=== PATIENT | male | born 1955 | race Caucasian/White ===

== ENCOUNTER 2016-11-16 20:03 | Emergency (ER) | payer MEDICAID, MEDICARE ==
[2016-11-16 20:08] VITALS: BP 126/88
--- NOTE | 2016-11-16 20:45 | ER Document Report ---
ED Medical Screen (RME) - General Stated Complaint: POSSIBLE INFECTION OF FOOT AFTER STEPPING ON NAIL Notes: Patient states he stepped on a alejandro nail about 2 weeks ago injuring right heel. Now has pain and swelling around the ankle. No drainage noted. Patient was wearing flip-flops at the time. Patient states he thinks he received a tetanus shot one month ago when he was injured and went to [facility]. I have greeted and performed a rapid initial assessment of this patient. A comprehensive ED assessment and evaluation of the patient, analysis of test results and completion of the medical decision making process will be conducted by additional ED providers. TRAVEL OUTSIDE OF THE [place] IN LAST 30 DAYS: No - Related Data Allergies/Adverse Reactions: Sulfa (Sulfonamide Antibiotics) Allergy (Intermediate, Verified 03/11/14 09:04) [place] Past Medical History Pulmonary Medical History: Reports: Hx COPD Renal/ Medical History: Reports: Hx Kidney Stones Psychiatric Medical History: Reports: Hx Anxiety, Hx Attention Deficit Hyperactivity Disorder, Hx Depression Past Surgical History: Reports: Hx Nose Surgery - rhinoplasty - Immunizations Immunizations up to date: Yes Hx Diphtheria, Pertussis, Tetanus Vaccination: No - unsure Physical Exam - Vital signs Vitals: Temp Pulse Resp BP Pulse Ox 98.0 F 106 H 16 126/88 H 93 11/16/16 20:07 11/16/16 20:07 11/16/16 20:07 11/16/16 20:07 11/16/16 20:07 - Skin Notes: Tenderness and swelling noted to her right heel and right ankle. No drainage noted. Mild erythema. Course - Vital Signs Vital signs: Temp Pulse Resp BP Pulse Ox 98.0 F 106 H 16 126/88 H 93 11/16/16 20:07 11/16/16 20:07 11/16/16 20:07 11/16/16 20:07 11/16/16 20:07
[2016-11-16] MEDS ORDERED: CLINDAMYCIN HCL 150 MG CAPSULE PO ONE (22:28)
--- NOTE | 2016-11-16 22:29 | ER Document Report ---
ED General - General Chief Complaint: Foot Injury Stated Complaint: POSSIBLE INFECTION OF FOOT AFTER STEPPING ON NAIL Notes: Patient is a 61-year-old male without past medical history who presents with 2 weeks of progressively worsening pain to his right foot as well as spreading erythema. States he stepped on a nail 2 weeks ago, pulled out the entirety the nail and did not have any pain for approximately 2-3 days. States he began to develop a dull, constant, throbbing pain to the foot that has gotten worse since that time. Nothing improves or worsens the pain. He went to urgent care [facility] and was referred to the emergency department. He has not had any constitutional symptoms or fever. States the redness is really not moved since it started. TRAVEL OUTSIDE OF THE [place] IN LAST 30 DAYS: No - Related Data Allergies/Adverse Reactions: Sulfa (Sulfonamide Antibiotics) Allergy (Intermediate, Verified 03/11/14 09:04) [place] Past Medical History - General Information source: Patient - Social History Smoking Status: Current Every Day Smoker Chew tobacco use (# tins/day): No Frequency of alcohol use: Occasional Drug Abuse: None Family History: Reviewed & Not Pertinent Patient has suicidal ideation: No Patient has homicidal ideation: No Pulmonary Medical History: Reports: Hx COPD Renal/ Medical History: Reports: Hx Kidney Stones. Denies: Hx Peritoneal Dialysis Psychiatric Medical History: Reports: Hx Anxiety, Hx Attention Deficit Hyperactivity Disorder, Hx Depression Past Surgical History: Reports: Hx Nose Surgery - rhinoplasty - Immunizations Immunizations up to date: Yes Hx Diphtheria, Pertussis, Tetanus Vaccination: No - unsure Review of Systems - Review of Systems Notes: Constitutional: Negative for fever. HENT: Negative for sore throat. Eyes: Negative for visual changes. Cardiovascular: Negative for chest pain. Respiratory: Negative for shortness of breath. Gastrointestinal: Negative for abdominal pain, vomiting or diarrhea. Genitourinary: Negative for dysuria. Musculoskeletal: Positive for right foot pain Skin: Positive for rash. Neurological: Negative for headaches, weakness or numbness. 10 point ROS negative except as marked above and in HPI. Physical Exam - Vital signs Vitals: Temp Pulse Resp BP Pulse Ox 98.0 F 106 H 16 126/88 H 93 11/16/16 20:07 11/16/16 20:07 11/16/16 20:07 11/16/16 20:07 11/16/16 20:07 Interpretation: Tachycardic Notes: PHYSICAL EXAMINATION: GENERAL: Well-appearing, well-nourished and in no acute distress. HEAD: Atraumatic, normocephalic. EYES: sclera anicteric, conjunctiva are normal. ENT: Moist mucous membranes. NECK: Normal range of motion LUNGS: Normal work of breathing HEART: 2+ radial pulses bilaterally EXTREMITIES: no pitting or edema. No cyanosis. NEUROLOGICAL: No focal neurological deficits. Moves all extremities spontaneously and on command. PSYCH: Normal mood, normal affect. SKIN: Warm, Dry, normal turgor, erythema to the dorsum of the foot extending to approximately 2 cm above the ankle. No crepitus. Course - Re-evaluation Re-evalutation: 11/16/16 22:29 Patient presents with symptoms most consistent with an acute cellulitis. Vitals within normal limits at time of my assessment (HR 82 at time of eval). Patient does not meet sepsis criteria is overall very well in appearance. Exam and history are not consistent with DVT. Patient will be started on coverage for both staph and strep. Xray without evidence of foreign body. I do not suspect a gas producing infection based on exam. At this time will discharge with return precautions and follow-up recommendations. Verbal discharge instructions given a the bedside and opportunity for questions given. Medication warnings reviewed. Patient is in agreement with this plan and has verbalized understanding of return precautions and the need for primary care follow-up in the next 24-72 hours. - Vital Signs Vital signs: Temp Pulse Resp BP Pulse Ox 98.0 F 106 H 16 126/88 H 93 11/16/16 20:07 11/16/16 20:07 11/16/16 20:07 11/16/16 20:07 11/16/16 20:07 - Diagnostic Test Radiology reviewed: Image reviewed, Reports reviewed Radiology results interpreted by me: 11/17/16 02:55 R foot xray: No foreign body. No gas. Discharge - Discharge Clinical Impression: Cellulitis of right foot Condition: Good Disposition: HOME, SELF-CARE Additional Instructions: The rash is likely due to infection of your skin. You need to take the antibiotics as prescribed. Do not stop even if the rash goes away until you have completed all the antibiotics. The area of redness was traced out here in the emergency department with a marking pen. You need to return to emergency department if the redness spreads outside of this area by more than 2 cm in any direction. You should also return if you develop fevers with temperature greater than 101, persistent vomiting, worsening pain, or have any other symptoms that are concerning to you. Prescriptions: Clindamycin HCl 300 mg PO TID #30 capsule
== END 2016-11-16 23:33 | disposition home or self-care (01) ==
LOC: ER 20:03
DX: L03.115 Cellulitis of right lower limb (principal); S99.921A Unspecified injury of right foot, initial encounter; W22.8XXA Striking against or struck by other objects, initial encounter; F17.200 Nicotine dependence, unspecified, uncomplicated
CPT/HCPCS: 99283

== ENCOUNTER 2017-07-25 17:08 | Emergency (ER) | payer MEDICARE, MEDICAID ==
[2017-07-25] MEDS ORDERED: NORMAL SALINE 1000 ML 1,000 ML IV ONE (17:47)
--- NOTE | 2017-07-25 17:48 | ER Document Report ---
ED Medical Screen (RME) - General Chief Complaint: Abdominal Pain Stated Complaint: ABDOMINAL PAIN Time Seen by Provider: 07/25/17 17:46 Notes: pt has had diarrhea/vomiting/abd pain for several days TRAVEL OUTSIDE OF THE [place] IN LAST 30 DAYS: No - Related Data Allergies/Adverse Reactions: Sulfa (Sulfonamide Antibiotics) Allergy (Intermediate, Verified 07/25/17 17:20) [place] Past Medical History Pulmonary Medical History: Reports: Hx COPD Renal/ Medical History: Reports: Hx Kidney Stones. Denies: Hx Peritoneal Dialysis Psychiatric Medical History: Reports: Hx Anxiety, Hx Attention Deficit Hyperactivity Disorder, Hx Depression Past Surgical History: Reports: Hx Nose Surgery - rhinoplasty - Immunizations Immunizations up to date: Yes Hx Diphtheria, Pertussis, Tetanus Vaccination: No - unsure Physical Exam - Vital signs Vitals: Temp Pulse Resp BP Pulse Ox 97.8 F 89 16 152/98 H 96 07/25/17 17:18 07/25/17 17:18 07/25/17 17:18 07/25/17 17:18 07/25/17 17:18 Course - Vital Signs Vital signs: Temp Pulse Resp BP Pulse Ox 97.8 F 89 16 152/98 H 96 07/25/17 17:18 07/25/17 17:18 07/25/17 17:18 07/25/17 17:18 07/25/17 17:18
[2017-07-25 18:41] LABS: APPEARANCE,URINE CLEAR; BILIRUBIN,URINE NEGATIVE (NEGATIVE); GLUCOSE, URINE NEGATIVE (NEGATIVE); KETONES,URINE NEGATIVE (NEGATIVE); LEUKOCYTE ESTERASE,URINE NEGATIVE (NEGATIVE); NITRITE,URINE NEGATIVE (NEGATIVE); PROTEIN,URINE NEGATIVE (NEGATIVE); URINE SPECIFIC GRAVITY 1.017; UROBILINOGEN,URINE NEGATIVE mg/dL (<2.0)
[2017-07-25 18:59] LABS: ABSOLUTE EOSINOPHILS # (AUTO) 0.2 10^3/uL (0.0-0.6); ABSOLUTE LYMPHOCYTES (AUTO) 2.1 10^3/uL (0.5-4.7); ABSOLUTE MONOCYTES (AUTO) 0.5 10^3/uL (0.1-1.4); ABSOLUTE NEUT (AUTO) 4.5 10^3/uL (1.7-8.2); BASOPHILS % (AUTO) 0.4 % (0-2); EOSINOPHILS % (AUTO) 3.3 % (0-6); HEMATOCRIT 46.5 % (37.9-51.0); HEMOGLOBIN 15.9 g/dL (13.5-17.0); HGB HCT DIFFERENCE 1.2; MEAN CORPUSCULAR HEMOGLOBIN 29.8 pg (27.0-33.4); MEAN CORPUSCULAR HGB CONC 34.3 g/dL (32.0-36.0); MEAN CORPUSCULAR VOLUME 87 fl (80-97); MONOCYTES % (AUTO) 7.2 % (3-13); RED BLOOD COUNT 5.35 10^6/uL (4.35-5.55); SEGMENTED NEUTROPHILS % (AUTO) 61.1 % (42-78); WHITE BLOOD COUNT 7.4 10^3/uL (4.0-10.5)
[2017-07-25 19:33] LABS: ALANINE AMINOTRANSFERASE 59 U/L (21-72); ALBUMIN 4.4 g/dL (3.5-5.0); ALKALINE PHOSPHATASE 67 U/L (38-126); ANION GAP 13 (5-19); ASPARTATE AMINO TRANSFERASE 31 U/L (17-59); BILIRUBIN,DIRECT 0.3 mg/dL (0.0-0.4); BILIRUBIN,TOTAL 0.4 mg/dL (0.2-1.3); BLOOD UREA NITROGEN 19 mg/dL (7-20); CALCIUM 9.4 mg/dL (8.4-10.2); CARBON DIOXIDE 27 mmol/L (22-30); CHLORIDE 100 mmol/L (98-107); CREATININE RESULT 1.06 mg/dL (0.52-1.25); GLUCOSE 106 mg/dL (75-110); LIPASE 105.6 U/L (23-300); POTASSIUM 4.3 mmol/L (3.6-5.0); SODIUM 140.2 mmol/L (137-145); TOTAL PROTEIN 7.1 g/dL (6.3-8.2)
--- NOTE | 2017-07-25 20:27 | RADIOLOGY REPORT (SQ) ---
EXAM DESCRIPTION: CT ABD/PELVIS WITH IV ONLY COMPLETED DATE/TIME: 07/25/2017 8:03 pm REASON FOR STUDY: abd pain COMPARISON: Non contrasted CT of the abdomen and pelvis dated September 2012 TECHNIQUE: CT scan of the abdomen and pelvis performed using helical scanning technique with dynamic intravenous contrast injection. No oral contrast. Images reviewed with lung, soft tissue, and bone windows. Reconstructed coronal and sagittal MPR images reviewed. Delayed images for evaluation of the urinary system also acquired. All images stored on PACS. All CT scanners at this facility use dose modulation, iterative reconstruction, and/or weight based d osing when appropriate to reduce radiation dose to as low as reasonably achievable (ALARA). [facility]: Dose Right [facility]: CareDose [facility]: Dose Right [facility]: Teradose 4D [facility]: Categorical CONTRAST TYPE AND DOSE: contrast/concentration: Isovue 370.00 mg/ml; Total Contrast Delivered: 95.0 ml; Total Saline Delivered: 43.0 ml RENAL FUNCTION: Creatinine 1.06 RADIATION DOSE: CT Rad equipment meets quality standard of care and radiation dose reduction techniq ues were employed. CTDIvol: 8.6 - 12.0 mGy. DLP: 1111 mGy-cm.. LIMITATIONS: None. FINDINGS: LOWER CHEST: No significant findings. No nodules or infiltrates. LIVER: Normal size. No masses. No dilated ducts. SPLEEN: Normal size. No focal lesions. PANCREAS: No masses. No significant calcifications. No adjacent inflammation or peripancreatic fluid collections. Pancreatic duct not dilated. GALLBLADDER: No identified stones by CT criteria. No inflammatory changes to suggest cholecystitis. ADRENAL GLANDS: No significant masses or asymmetry. RIGHT KIDNEY AND URETER: No solid masses. No significant calcifications. No hydronephrosis or hyd roureter. LEFT KIDNEY AND URETER: No solid masses. No significant calcifications. No hydronephrosis or hydr oureter. AORTA AND VESSELS: No aneurysm. No dissection. Renal arteries, SMA, celiac without stenosis. RETROPERITONEUM: No retroperitoneal adenopathy, hemorrhage or masses. BOWEL AND PERITONEAL CAVITY: No masses or inflammatory changes. No free fluid or peritoneal masses. APPENDIX: Normal. PELVIS: No mass. No free fluid. Normal bladder. ABDOMINAL WALL: No masses. No hernias. BONES: No acute findings. Extensive degenerative changes are identified in the lumbar spine OTHER: No other significant finding. IMPRESSION: NO SIGNIFICANT OR ACUTE FINDING IN THE ABDOMEN OR PELVIS ON CT SCAN WITH IV CONTRAST. TECHNICAL DOCUMENTATION: JOB ID: [id number] Quality ID # [id number]: Final reports with documentation of one or more dose reduction techniques (e.g., Au tomated exposure control, adjustment of the mA and/or kV according to patient size, use of iterative reconstruction technique) 2010 [employer]- All Rights Reserved
[2017-07-25] MEDS ORDERED: ONDANSETRON HCL INJ/PF 4 MG/2 ML SDV IV ONE (20:33)
[2017-07-25] MEDS ORDERED: MORPHINE SULFATE 10 MG/ML INJ IV ONE (20:33)
[2017-07-25] MEDS ORDERED: DICYCLOMINE HCL INJ 20 MG/2 ML AMPULE IM ONE (20:34)
--- NOTE | 2017-07-25 20:35 | ER Document Report ---
ED General - General Chief Complaint: Abdominal Pain Stated Complaint: ABDOMINAL PAIN Time Seen by Provider: 07/25/17 17:46 Notes: Patient is a 62-year-old male who presents emergency department complaining of nausea, vomiting, diarrhea and abdominal pain for 1 week. Patient admits to approximately 3 loose bowel movements a day. States that he has been nauseous with difficulty keeping fluids down but is been tolerating soup and water. He otherwise denies any previous GI history. Denies any history of irritable bowel disease, gallbladder disease, Crohn's disease, ulcerative colitis, diverticulitis. He denies any fevers at home. Past medical history significant for COPD and chronic back pain TRAVEL OUTSIDE OF THE [place] IN LAST 30 DAYS: No - Related Data Allergies/Adverse Reactions: Sulfa (Sulfonamide Antibiotics) Allergy (Intermediate, Verified 07/25/17 17:20) [place] Past Medical History - Social History Smoking Status: Current Every Day Smoker Family History: Reviewed & Not Pertinent Patient has suicidal ideation: No Patient has homicidal ideation: No Pulmonary Medical History: Reports: Hx COPD Renal/ Medical History: Reports: Hx Kidney Stones. Denies: Hx Peritoneal Dialysis Psychiatric Medical History: Reports: Hx Anxiety, Hx Attention Deficit Hyperactivity Disorder, Hx Depression Past Surgical History: Reports: Hx Nose Surgery - rhinoplasty - Immunizations Immunizations up to date: Yes Hx Diphtheria, Pertussis, Tetanus Vaccination: No - unsure Review of Systems - Review of Systems Constitutional: No symptoms reported Cardiovascular: No symptoms reported Respiratory: No symptoms reported Gastrointestinal: See HPI -: Yes All other systems reviewed and negative Physical Exam - Vital signs Vitals: Temp Pulse Resp BP Pulse Ox 97.8 F 89 16 152/98 H 96 07/25/17 17:18 07/25/17 17:18 07/25/17 17:18 07/25/17 17:18 07/25/17 17:18 - Notes Notes: PHYSICAL EXAM GENERAL: Alert, interacts well. NECK: Full range of motion. Supple. Trachea midline. LUNGS: Clear to auscultation bilaterally, no wheezes, rales, or rhonchi. No respiratory distress. HEART: Regular rate and rhythm. No murmurs, gallops, or rubs. ABDOMEN: Soft, nondistended, diffusely tender to superficial palpation. no guarding, rebound, or rigidity.. Bowel sounds present in all 4 quadrants. EXTREMITIES: Moves all 4 extremities spontaneously. No edema, radial and dorsalis pedis pulses 2/4 bilaterally. No cyanosis. NEUROLOGICAL: Alert and oriented x4. Normal speech. PSYCH: Normal affect, normal mood. SKIN: Warm, dry, normal turgor. No rashes or lesions noted. Course - Re-evaluation Re-evalutation: 07/25/17 20:35 Patient is a 62-year-old male who is hemodynamically stable, no acute distress and afebrile. Vital signs are stable. Patient appears to be well-hydrated per clinical exam. No evidence of leukocytosis or anemia noted on CBC. Chemistry panel without evidence of dehydration, acute renal failure, acute hepatic injury or concern for common bile duct obstruction. CT the abdomen and pelvis normal without any evidence of an acute intra-abdominal process. 07/25/17 21:54 Patient feels much better after medication and requesting to be discharged home. Discussed with him strict return precautions otherwise to follow-up with primary care this week. Patient agrees with plan and is stable for discharge home - Vital Signs Vital signs: Temp Pulse Resp BP Pulse Ox 98.1 F 61 16 149/96 H 95 07/25/17 22:41 07/25/17 22:41 07/25/17 22:41 07/25/17 22:41 07/25/17 22:41 - Laboratory Result Diagrams: 07/25/17 18:46 07/25/17 18:46 - Diagnostic Test Radiology reviewed: Image reviewed, Reports reviewed Discharge - Discharge Clinical Impression: Diarrhea Qualifiers: Diarrhea type: unspecified type Qualified Code(s): R19.7 - Diarrhea, unspecified Abdominal pain Qualifiers: Abdominal location: generalized Qualified Code(s): R10.84 - Generalized abdominal pain Condition: Good Disposition: HOME, SELF-CARE Additional Instructions: ABDOMINAL PAIN: There are many causes of abdominal pain. Pain can mean a serious problem requiring surgery (such as appendicitis). It can also be an innocent problem that goes away on its own (such as a viral infection). Often, time must pass to determine the cause of pain. The physician does not feel that hospitalization is necessary, at present. Things may change within the next 24 hours. Call the doctor or come back for re- examination if any problems occur, such as: (1) Pain that becomes more severe, steady, or becomes concentrated in one specific area. Also, pain that is more severe with movement or coughing. (2) Vomiting that persists or becomes more frequent. (3) Blood in the vomitus, urine, or bowel movements. Blood in the stool may have a tarry or black appearance. (4) Shaking chills or fever greater than 100 degrees F. (5) The abdomen becomes more distended or swollen. (6) Bowel movements cease. (7) Failure to improve as expected. NORMAL EXAM AND WORKUP: At this time, your examination and workup show no significant abnormality. No significant abnormal physical findings are noted. All laboratory, EKG, and imaging (x-ray, CT scans, ultrasound) studies that were ordered show no significant abnormality. Although your examination and all studies that were ordered showed no significant abnormal finding, there are no examinations and no studies that are 100% accurate. There is always the possibility that some abnormality could exist and not be detected with physical examination or within the limits and capabilities of laboratory and other studies. You should return or follow up as you were instructed on your visit today for further evaluation if your symptoms do not resolve. PAIN MEDICATION INJECTION: You have received an injection of a pain medication. You should experience significant pain relief within 45 minutes. This drug is a narcotic - - it will impair your judgement, slow your reaction time and make you sleepy ( as well as relieve your pain). Narcotics also can cause nausea. You should not drive, work with machinery, or perform any task requiring mental alertness until all effects of the medication are gone -- six to eight hours. Do not take any alcohol, or sedatives, and do not take any other medication without checking with your physician. ANTINAUSEA MEDICATION: You have been given a medication to suppress nausea and vomiting. This type of medication can be given as a shot, pill, or suppository. It will usually last for many hours. Pills and shots usually last six to eight hours, suppositories last about 12 hours. For the typical illness, only one or two doses of the medication may be necessary. Mild lightheadedness may occur. This type of medicine can cause drowsiness. Do not drive or operate dangerous machinery while under its influence. Do not mix with alcohol. See your doctor at once if you have muscle spasms or tightness, or uncontrollable motions (particularly of the neck, mouth, or jaw). Persistent vomiting or severe lightheadedness should also be evaluated by the physician. ANTISPASMODICS: You have been given a prescription for an antispasmodic medicine. This type of drug is used to decrease cramping and pain in the intestines. It is also used to decrease secretion of internal fluids (such as stomach acid in ulcer disease or pancreatic juice in pancreas disease). This medicine may cause drowsiness, especially with the first dose. Do not operate machinery or drive until all side effects have resolved. Do not combine with alcohol. Other common side effects include dry mouth and eyes. In older persons, antispasmodics can occasionally cause urinary retention, constipation, or trouble focusing the eyes. Glaucoma may be worsened by this medicine. FOLLOW-UP CARE: If you have been referred to a physician for follow-up care, call the physician s office for an appointment as you were instructed or within the next two days. If you experience worsening or a significant change in your symptoms, notify the physician immediately or return to the Emergency Department at any time for re-evaluation. Prescriptions: Ondansetron HCl [Zofran] 4 mg PO Q4HP PRN #20 tablet PRN Reason: Dicyclomine HCl [Bentyl 10 mg Capsule] 1 cap PO TID #30 cap
[2017-07-25] MEDS ORDERED: DICYCLOMINE HCL 10 MG CAPSULE PO ONE (20:38)
[2017-07-25 22:42] VITALS: BP 149/96
== END 2017-07-25 22:51 | disposition home or self-care (01) ==
LOC: ER 17:08
DX: R11.2 Nausea with vomiting, unspecified (principal); R10.84 Generalized abdominal pain; R19.7 Diarrhea, unspecified; F17.200 Nicotine dependence, unspecified, uncomplicated
CPT/HCPCS: 99284; 96361; 96374; 96375; 36415; 87045; 87205; 83690; 85025; 80053; 81001; 74177; A9270; J2270; J2405; J7030; J3490

== ENCOUNTER 2018-11-06 23:47 | Inpatient (IN) | payer MEDICARE, MEDICAID ==
[2018-11-07] MEDS ORDERED: IPRATROPIUM/ALBUTEROL 0.5-2.5 MG/3 ML AMPUL NEB ONE (00:08)
[2018-11-07] MEDS: MAGNESIUM SULFATE/D5W 1 GM/100 ML RTUPB IV SCH ×2 (00:20→01:00)
[2018-11-07 00:28] LABS: ABSOLUTE BASOPHILS # (AUTO) 0.1 10^3/uL (0.0-0.2); ABSOLUTE EOSINOPHILS # (AUTO) 0.3 10^3/uL (0.0-0.6); ABSOLUTE LYMPHOCYTES (AUTO) 2.7 10^3/uL (0.5-4.7); ABSOLUTE MONOCYTES (AUTO) 0.6 10^3/uL (0.1-1.4); ABSOLUTE NEUT (AUTO) 3.6 10^3/uL (1.7-8.2); BASOPHILS % (AUTO) 1.3 % (0-2); EOSINOPHILS % (AUTO) 3.4 % (0-6); HEMATOCRIT 40.6 % (37.9-51.0); LYMPHOCYTES % (AUTO) 37.4 % (13-45); MEAN CORPUSCULAR HEMOGLOBIN 30.7 pg (27.0-33.4); MEAN CORPUSCULAR HGB CONC 34.6 g/dL (32.0-36.0); MEAN CORPUSCULAR VOLUME 89 fl (80-97); MONOCYTES % (AUTO) 8.4 % (3-13); PLATELET COUNT 209 10^3/uL (150-450); RED BLOOD COUNT 4.56 10^6/uL (4.35-5.55); RED CELL DISTRIBUTION WIDTH 12.8 % (11.5-14.0); SEGMENTED NEUTROPHILS % (AUTO) 49.5 % (42-78); TOTAL CELLS COUNTED % (AUTO) 100 %; WHITE BLOOD COUNT 7.3 10^3/uL (4.0-10.5)
[2018-11-07 00:38] LABS: ALANINE AMINOTRANSFERASE 67 U/L (21-72); ALBUMIN 4.3 g/dL (3.5-5.0); ALKALINE PHOSPHATASE 65 U/L (38-126); ANION GAP 12 (5-19); ASPARTATE AMINO TRANSFERASE 49 U/L (17-59); BILIRUBIN,DIRECT 0.2 mg/dL (0.0-0.4); BILIRUBIN,TOTAL 0.4 mg/dL (0.2-1.3); BLOOD UREA NITROGEN 24 mg/dL (7-20); CALCIUM 9.2 mg/dL (8.4-10.2); CARBON DIOXIDE 26 mmol/L (22-30); CHLORIDE 97 mmol/L (98-107); GLUCOSE 101 mg/dL (75-110); POTASSIUM 4.2 mmol/L (3.6-5.0); SODIUM 135.3 mmol/L (137-145); TOTAL PROTEIN 6.4 g/dL (6.3-8.2)
--- NOTE | 2018-11-07 00:38 | RADIOLOGY REPORT (SQ) ---
XR CHEST 1 VIEW HISTORY: Difficulty breathing. COMPARISON: None. FINDINGS: The heart size is normal. The lungs are clear. No pleural effusion or pneumothorax is seen. No acute bony findings. IMPRESSION: No evidence of acute cardiopulmonary disease.
[2018-11-07 00:57] LABS: VENOUS BLOOD BASE EXCESS 2.9 mmol/L; VENOUS BLOOD HCO3 28.8 mmol/L (20-32); VENOUS BLOOD PCO2 48.5 mmHg (35-63); VENOUS BLOOD PH 7.39 (7.30-7.42)
[2018-11-07 00:59] LABS: APPEARANCE,URINE CLEAR; BILIRUBIN,URINE NEGATIVE (NEGATIVE); COLOR,URINE YELLOW; GLUCOSE, URINE NEGATIVE (NEGATIVE); KETONES,URINE NEGATIVE (NEGATIVE); LEUKOCYTE ESTERASE,URINE NEGATIVE (NEGATIVE); NITRITE,URINE NEGATIVE (NEGATIVE); PROTEIN,URINE NEGATIVE (NEGATIVE); URINE SPECIFIC GRAVITY 1.025; UROBILINOGEN,URINE NEGATIVE mg/dL (<2.0)
[2018-11-07] MEDS ORDERED: ALBUTEROL SULFATE 0.083% NEB 2.5 MG/3 ML AMPUL NEB ONE (02:11)
[2018-11-07] MEDS ORDERED: GUAIFENESIN SYRP 200 MG/10 ML UDC PO PRN (03:59)
[2018-11-07] MEDS ORDERED: IPRATROPIUM/ALBUTEROL 0.5-2.5 MG/3 ML AMPUL NEB PRN (03:59)
--- NOTE | 2018-11-07 04:01 | ER Document Report ---
ED Respiratory Problem - General Chief Complaint: Breathing Difficulty Stated Complaint: DIFFICULTY BREATHING Time Seen by Provider: 11/07/18 00:00 Notes: Patient is a 63-year-old male presents to the emergency department for cough, congestion, shortness of breath. Patient states he has had generalized cough and congestion for the last couple of days. Patient is denying any fever but does state his entire body hurts when he coughs. Patient states he was diagnosed with emphysema by his primary care provider but was placed on medications. States he is unsure of what medications he was placed on and knows that he does not currently take any of those medications. Patient states he continues to smoke 1 pack of cigarettes a day. According to EMS report patient was given 2 DuoNeb treatments and 125 mg of Solu-Medrol. Upon my examination patient is on room air oxygen satting at 86%. He appears to be mildly tachypneic although talking in full sentences. Past medical history: COPD Medications: None Allergies: Sulfa TRAVEL OUTSIDE OF THE [place] IN LAST 30 DAYS: No - Related Data Allergies/Adverse Reactions: Sulfa (Sulfonamide Antibiotics) Allergy (Intermediate, Verified 07/25/17 17:20) [place] Past Medical History - General Information source: Patient - Social History Smoking Status: Current Every Day Smoker Family History: Reviewed & Not Pertinent Pulmonary Medical History: Reports: Hx COPD Renal/ Medical History: Reports: Hx Kidney Stones. Denies: Hx Peritoneal Dialysis Psychiatric Medical History: Reports: Hx Anxiety, Hx Attention Deficit Hyperactivity Disorder, Hx Depression Past Surgical History: Reports: Hx Nose Surgery - rhinoplasty - Immunizations Immunizations up to date: Yes Hx Diphtheria, Pertussis, Tetanus Vaccination: No - unsure Review of Systems - Review of Systems Constitutional: See HPI. denies: Fever EENT: See HPI Cardiovascular: See HPI Respiratory: See HPI Gastrointestinal: No symptoms reported Genitourinary: No symptoms reported Male Genitourinary: No symptoms reported Musculoskeletal: See HPI Skin: No symptoms reported Hematologic/Lymphatic: No symptoms reported Neurological/Psychological: No symptoms reported Physical Exam - Vital signs Vitals: Pulse Ox 96 11/06/18 23:53 - Notes Notes: GENERAL: Alert, interacts well. No acute distress despite oxygen saturations at 87%. HEAD: Normocephalic, atraumatic. EYES: Pupils equal, round, and reactive to light. Extraocular movements intact. ENT: Oral mucosa moist, tongue midline. Nares patent, no nasal septal hematoma, TM's intact, nonerythematous, nonbulging bilaterally NECK: Full range of motion. Supple. Trachea midline. LUNGS: Inspiratory expiratory wheeze heard all lung [place]. HEART: Tachycardic rate and rhythm. No murmur ABDOMEN: Soft, non-tender. Non-distended. Bowel sounds present in all 4 quadrants. EXTREMITIES: Moves all 4 extremities spontaneously. No edema, normal radial and dorsalis pedis pulses bilaterally. No cyanosis. BACK: no cervical, thoracic, lumbar midline tenderness. No saddle anesthesia, normal distal neurovascular exam. NEUROLOGICAL: Alert and oriented x3. Normal speech. cranial nerves II through XII grossly intact. PSYCH: Normal affect, normal mood. SKIN: Warm, dry, normal turgor. No rashes or lesions noted. Course - Re-evaluation Re-evalutation: Patient's labs show no signs of leukocytosis, no signs of anemia, patient's VBG is within normal limits, negative troponin, negative d-dimer. Patient's chest x-ray reveals no signs of pneumonia, pneumothorax, rib fracture. Patient initially presents to the emergency department tachycardic potentially due to his albuterol administration remains tachycardic and hypoxic. D-dimer was ordered which resulted negative. Patient has been treated with multiple DuoNeb treatments, steroids, magnesium, and oxygen via nasal cannula. Despite these treatments patient remains with a pulse ox around 90%. Patient states he overall feels a lot better but continues to be hypoxic. Discussed this case with hospitalist Dr. Phoenix Huang who will admit the patient. - Vital Signs Vital signs: Temp Pulse Resp BP Pulse Ox 17 124/78 89 L 11/07/18 03:01 11/07/18 03:00 11/07/18 03:01 - Laboratory Result Diagrams: 11/07/18 00:10 11/07/18 00:10 Laboratory results interpreted by me: 11/07/18 00:10 Sodium 135.3 L Chloride 97 L BUN 24 H Discharge - Discharge Clinical Impression: COPD exacerbation Condition: Stable Disposition: ADMITTED INPATIENT Admitting Provider: Hospitalist - Dr. Huang Unit Admitted: Telemetry
[2018-11-07] MEDS ORDERED: TRAZODONE HCL 50 MG TABLET PO PRN (04:11)
[2018-11-07] MEDS ORDERED: DILTIAZEM HCL 90 MG TABLET PO ONE (04:15)
--- NOTE | 2018-11-07 05:43 | PDOC H&P ---
History of Present Illness Admission Date/PCP: 11/07/18 04:27 HOSEA MCCORD MD Patient complains of: Shortness of breath and cough History of Present Illness: HOSEA MONTANEZ II is a 63 year old male with a past medical history of chronic pain, COPD and tobacco Dependence. Patient presents with 3 weeks of worsening baseline shortness of breath complicated by rhinorrhea, sore throat, acid reflux and a nonproductive cough. He has tried several [id number] medications without improvement prompting him to seek evaluation emergency room where he is found to be hypoxic, tachycardia with paroxysms of nonproductive cough. CTA chest is negative for PE or pneumonia. He receives several treatments with albuterol, Atrovent and magnesium without significant improvement and is referred to the hospitalist for admission. Past Medical History Cardiac Medical History: Reports: Hypertension Pulmonary Medical History: Reports: Chronic Obstructive Pulmonary Disease (COPD) Psychiatric Medical History: Reports: Attention Deficit Hyperactivity Disorder, Depression, General Anxiety Disorder, Tobacco Dependency Social History Information Source: Patient Smoking Status: Current Every Day Smoker Frequency of Alcohol Use: Heavy - 1 pint per day - Advance Directive Resuscitation Status: Full Code Family History Family History: COPD, Hypertension Parental Family History Reviewed: Yes Children Family History Reviewed: Yes Sibling(s) Family History Reviewed.: Yes Medication/Allergy Home Medications: Ciprofloxacin HCl [Cipro 500 mg Tablet] 500 mg PO BID #14 tablet 03/11/14 Tiotropium [place] [Spiriva Handihaler 18 mcg/dose (30 Dose)] 1 cap IH DAILY 03/11/14 Zolpidem Tartrate [Ambien 5 mg Tablet] 5 mg PO HSP PRN 03/11/14 Cyclobenzaprine HCl [Flexeril 10 mg Tablet] 10 mg PO TIDP PRN #15 tab 06/08/15 Prednisone 20 mg PO DAILY #15 tablet 06/08/15 Tramadol HCl 50 mg PO ASDIR PRN #30 tablet 06/08/15 Methocarbamol [Robaxin 750 mg Tablet] 750 mg PO QID #40 tablet 04/16/16 Nabumetone [Relafen] 750 mg PO BID #60 tablet 04/16/16 Clindamycin HCl 300 mg PO TID #30 capsule 11/16/16 Dicyclomine HCl [Bentyl 10 mg Capsule] 1 cap PO TID #30 cap 07/25/17 Ondansetron HCl [Zofran] 4 mg PO Q4HP PRN #20 tablet 07/25/17 Allergies/Adverse Reactions: Sulfa (Sulfonamide Antibiotics) Allergy (Intermediate, Verified 07/25/17 17:20) [place] Review of Systems Constitutional: PRESENT: as per HPI. ABSENT: chills, fever(s), headache(s), weight gain, weight loss Eyes: ABSENT: visual disturbances Ears: ABSENT: hearing changes Nose, Mouth, and Throat: PRESENT: sore throat Cardiovascular: ABSENT: chest pain, dyspnea on exertion, edema, orthropnea, palpitations Respiratory: PRESENT: as per HPI, cough, dyspnea. ABSENT: hemoptysis Gastrointestinal: ABSENT: abdominal pain, constipation, diarrhea, hematemesis, hematochezia, nausea, vomiting Genitourinary: ABSENT: dysuria, hematuria Musculoskeletal: ABSENT: joint swelling Integumentary: ABSENT: rash, wounds Neurological: ABSENT: abnormal gait, abnormal speech, confusion, dizziness, focal weakness, syncope Psychiatric: ABSENT: anxiety, depression, homidical ideation, suicidal ideation Endocrine: ABSENT: cold intolerance, heat intolerance, polydipsia, polyuria Hematologic/Lymphatic: ABSENT: easy bleeding, easy bruising Physical Exam Vital Signs: Temp Pulse Resp BP Pulse Ox 17 98/57 L 88 L 11/07/18 05:01 11/07/18 05:01 11/07/18 05:01 Intake & Output 11/05/18 11/06/18 11/07/18 11:59 11:59 11:59 Intake Total 200 Balance 200 Weight 88.904 kg General appearance: PRESENT: cooperative, severe distress, thin Head exam: PRESENT: atraumatic, normocephalic Eye exam: PRESENT: conjunctiva pink, EOMI, PERRLA. ABSENT: scleral icterus Ear exam: PRESENT: normal external ear exam Mouth exam: PRESENT: moist, tongue midline Neck exam: ABSENT: carotid bruit, JVD, lymphadenopathy, thyromegaly Respiratory exam: PRESENT: accessory muscle use, prolonged expiratory phas, rales, retraction, rhonchi - Right-sided, stridor, symmetrical, tachypnea Cardiovascular exam: PRESENT: +S1, +S2, tachycardia Pulses: PRESENT: normal dorsalis pedis pul Vascular exam: PRESENT: normal capillary refill GI/Abdominal exam: PRESENT: normal bowel sounds, soft. ABSENT: distended, guarding, mass, organolmegaly, rebound, tenderness Rectal exam: PRESENT: deferred Extremities exam: PRESENT: full ROM. ABSENT: calf tenderness, clubbing, pedal edema Neurological exam: PRESENT: alert, awake, oriented to person, oriented to place, oriented to time, oriented to situation, CN II-XII grossly intact. ABSENT: motor sensory deficit Psychiatric exam: PRESENT: anxious, unusual affect. ABSENT: homicidal ideation, suicidal ideation Skin exam: PRESENT: dry, intact, warm. ABSENT: cyanosis, rash Results Laboratory Results: 11/07/18 00:10 11/07/18 00:10 11/07/18 11/07/18 11/07/18 00:10 00:10 00:10 WBC 7.3 RBC 4.56 Hgb 14.0 Hct 40.6 MCV 89 MCH 30.7 MCHC 34.6 RDW 12.8 Plt Count 209 Seg Neutrophils % 49.5 Lymphocytes % 37.4 Monocytes % 8.4 Eosinophils % 3.4 Basophils % 1.3 Absolute Neutrophils 3.6 Absolute Lymphocytes 2.7 Absolute Monocytes 0.6 Absolute Eosinophils 0.3 Absolute Basophils 0.1 VBG pH 7.39 VBG pCO2 48.5 VBG HCO3 28.8 VBG Base Excess 2.9 Sodium 135.3 L Potassium 4.2 Chloride 97 L Carbon Dioxide 26 Anion Gap 12 BUN 24 H Creatinine 1.04 Est GFR ( Amer) > 60 Est GFR (Non-Af Amer) > 60 Glucose 101 Calcium 9.2 Total Bilirubin 0.4 AST 49 ALT 67 Alkaline Phosphatase 65 Total Protein 6.4 Albumin 4.3 Urine Color Urine Appearance Urine pH Ur Specific [place] Urine Protein Urine Glucose (UA) Urine Ketones Urine Blood Urine Nitrite Ur Leukocyte Esterase Urine WBC (Auto) Urine RBC (Auto) 11/07/18 00:22 WBC RBC Hgb Hct MCV MCH MCHC RDW Plt Count Seg Neutrophils % Lymphocytes % Monocytes % Eosinophils % Basophils % Absolute Neutrophils Absolute Lymphocytes Absolute Monocytes Absolute Eosinophils Absolute Basophils VBG pH VBG pCO2 VBG HCO3 VBG Base Excess Sodium Potassium Chloride Carbon Dioxide Anion Gap BUN Creatinine Est GFR ( Amer) Est GFR (Non-Af Amer) Glucose Calcium Total Bilirubin AST ALT Alkaline Phosphatase Total Protein Albumin Urine Color YELLOW Urine Appearance CLEAR Urine pH 5.0 Ur Specific [place] 1.025 Urine Protein NEGATIVE Urine Glucose (UA) NEGATIVE Urine Ketones NEGATIVE Urine Blood NEGATIVE Urine Nitrite NEGATIVE Ur Leukocyte Esterase NEGATIVE Urine WBC (Auto) 1 Urine RBC (Auto) 0 11/07/18 11/07/18 00:10 00:10 Troponin I < 0.012 NT-Pro-B Natriuret Pep 153 Impressions: Chest X-Ray 11/06/18 23:53 IMPRESSION: No evidence of acute cardiopulmonary disease. Assessment & Plan - Diagnosis (1) Pneumonia Is this a current diagnosis for this admission?: Yes Plan: Right-sided rhonchi, pneumonia care set, Flonase, chlorpheniramine, empiric antibiotics, albuterol and Atrovent, follow-up CBC and culture (2) COPD exacerbation Is this a current diagnosis for this admission?: Yes Plan: Supplemental oxygen, BiPAP as needed, prednisone, incentive spirometry and PEEP flutter valve (3) Tobacco abuse Is this a current diagnosis for this admission?: Yes Plan: Tobacco Dependence patient received tobacco cessation counseling and offered nicotine replacement options (4) Alcohol dependence Is this a current diagnosis for this admission?: Yes Plan: Thiamine and folate, denies history of blackout, seizure, alcohol withdrawal DTs, consider Ativan if not improved with trial of trazodone given risk of respiratory depression. - Time Time Spent: 50 to 70 Minutes - Inpatient Certification Medical Necessity: Need Close Monitoring Due to Risk of Patient Decompensation
[2018-11-07] MEDS: CHLORPHENIRAMINE MALEATE 4 MG TABLET PO SCH ×3 (05:45→17:04)
[2018-11-07] MEDS: DILTIAZEM HCL 30 MG TABLET PO SCH ×3 (05:45→23:41)
[2018-11-07] MEDS: HEPARIN SOD (PORCINE) 5,000 UNIT/ML 1 ML SYRINGE SUBCUT SCH ×3 (05:46→23:35)
[2018-11-07 05:47] LABS: ABSOLUTE LYMPHOCYTES (AUTO) 0.5 10^3/uL (0.5-4.7); ABSOLUTE NEUT (AUTO) 3.4 10^3/uL (1.7-8.2); BASOPHILS % (AUTO) 0.3 % (0-2); EOSINOPHILS % (AUTO) 0.1 % (0-6); HEMATOCRIT 41.3 % (37.9-51.0); LYMPHOCYTES % (AUTO) 12.8 % (13-45); MEAN CORPUSCULAR HEMOGLOBIN 30.4 pg (27.0-33.4); MEAN CORPUSCULAR VOLUME 89 fl (80-97); PLATELET COUNT 193 10^3/uL (150-450); RED BLOOD COUNT 4.62 10^6/uL (4.35-5.55); RED CELL DISTRIBUTION WIDTH 12.7 % (11.5-14.0); SEGMENTED NEUTROPHILS % (AUTO) 85.8 % (42-78); TOTAL CELLS COUNTED % (AUTO) 100 %
[2018-11-07 05:59] LABS: ANION GAP 13 (5-19); BLOOD UREA NITROGEN 26 mg/dL (7-20); CALCIUM 9.7 mg/dL (8.4-10.2); CARBON DIOXIDE 25 mmol/L (22-30); CHLORIDE 99 mmol/L (98-107); GLUCOSE 147 mg/dL (75-110); SODIUM 137.2 mmol/L (137-145)
[2018-11-07] MEDS ORDERED: CEFEPIME HCL 1.5 GM in DEXTROSE 5%-WATER 50 ML IV SCH ×2 (06:00→10:00)
[2018-11-07] MEDS: LANSOPRAZOLE 30 MG TAB.RAP.DR PO SCH ×2 (07:09→17:06)
--- NOTE | 2018-11-07 07:13 | EKG REPORT ---
SEVERITY:- OTHERWISE NORMAL ECG - SINUS TACHYCARDIA : Confirmed by: Michael Alonzo MD 07-Nov-2018 07:12:54
[2018-11-07] MEDS: IPRATROPIUM/ALBUTEROL 0.5-2.5 MG/3 ML AMPUL NEB SCH ×3 (07:52→20:02)
[2018-11-07 08:42] LABS: A TYPE INFLUENZA AG NEGATIVE (NEGATIVE); B INFLUENZA AG NEGATIVE (NEGATIVE)
[2018-11-07] MEDS ORDERED: PREDNISONE 20 MG TABLET PO SCH (10:00)
[2018-11-07] MEDS: FLUTICASONE NASAL SPRAY 50 MCG/SPRY 120 SPRAY/16 GM NASL SCH ×2 (10:41→23:47)
[2018-11-07] MEDS: LEVOFLOXACIN 750 MG/D5W RTU 750 MG/150 ML RTUPB IV SCH (10:42)
[2018-11-07] MEDS: NORMAL SALINE 1000 ML 1,000 ML IV PRN ×2 (12:00→17:06)
[2018-11-07] MEDS: CYCLOBENZAPRINE HCL 10 MG TABLET PO PRN ×2 (12:05→23:49)
[2018-11-07] MEDS: CEFEPIME HCL 2 GM in DEXTROSE 5%-WATER 50 ML IV SCH ×2 (12:06→23:46)
[2018-11-07] MEDS: FOLIC ACID 1 MG TABLET PO SCH (12:13)
[2018-11-07] MEDS: THIAMINE HCL 100 MG TABLET PO SCH (12:13)
--- NOTE | 2018-11-07 14:43 | Progress Note ---
Provider Note Provider Note: This is 63 years old to male patient with past medical history of COPD, everyday smoker, alcohol abuse and hypertension,, chronic pain syndrome presented with chief complaint of worsening shortness of breath. The last 2 days he has had cough and congestion. Patient is being managed accordingly for COPD exacerbation. I seen him in his his room and I witnessed while he is persistently coughing. Accept this patient and I will be his primary attending.
[2018-11-07] MEDS: METHYLPREDNISOLONE INJ 40 MG/1 ML SDV IV SCH (23:47)
[2018-11-07] MEDS ORDERED: DILTIAZEM HCL 30 MG TABLET PO ONE (23:59)
[2018-11-08] MEDS: CHLORPHENIRAMINE MALEATE 4 MG TABLET PO SCH ×3 (00:41→13:05)
[2018-11-08] MEDS: IPRATROPIUM/ALBUTEROL 0.5-2.5 MG/3 ML AMPUL NEB SCH ×4 (01:57→19:57)
[2018-11-08 05:34] LABS: ABSOLUTE LYMPHOCYTES (AUTO) 0.8 10^3/uL (0.5-4.7); ABSOLUTE MONOCYTES (AUTO) 0.2 10^3/uL (0.1-1.4); ABSOLUTE NEUT (AUTO) 6.8 10^3/uL (1.7-8.2); BASOPHILS % (AUTO) 0.1 % (0-2); HEMATOCRIT 40.4 % (37.9-51.0); HEMOGLOBIN 13.7 g/dL (13.5-17.0); LYMPHOCYTES % (AUTO) 10.1 % (13-45); MEAN CORPUSCULAR HEMOGLOBIN 30.2 pg (27.0-33.4); MEAN CORPUSCULAR HGB CONC 33.9 g/dL (32.0-36.0); MEAN CORPUSCULAR VOLUME 89 fl (80-97); MONOCYTES % (AUTO) 2.3 % (3-13); PLATELET COUNT 182 10^3/uL (150-450); RED BLOOD COUNT 4.54 10^6/uL (4.35-5.55); RED CELL DISTRIBUTION WIDTH 12.7 % (11.5-14.0); SEGMENTED NEUTROPHILS % (AUTO) 87.5 % (42-78); TOTAL CELLS COUNTED % (AUTO) 100 %; WHITE BLOOD COUNT 7.8 10^3/uL (4.0-10.5)
[2018-11-08 05:40] LABS: ANION GAP 13 (5-19); BLOOD UREA NITROGEN 20 mg/dL (7-20); CALCIUM 9.5 mg/dL (8.4-10.2); CARBON DIOXIDE 23 mmol/L (22-30); CHLORIDE 98 mmol/L (98-107); GLUCOSE 136 mg/dL (75-110); POTASSIUM 4.9 mmol/L (3.6-5.0); SODIUM 134.4 mmol/L (137-145)
[2018-11-08] MEDS: HEPARIN SOD (PORCINE) 5,000 UNIT/ML 1 ML SYRINGE SUBCUT SCH ×3 (05:56→22:30)
[2018-11-08] MEDS: METHYLPREDNISOLONE INJ 40 MG/1 ML SDV IV SCH ×3 (05:56→22:34)
[2018-11-08] MEDS: LANSOPRAZOLE 30 MG TAB.RAP.DR PO SCH (05:56)
[2018-11-08] MEDS ORDERED: DILTIAZEM HCL 30 MG TABLET PO SCH (06:00)
[2018-11-08] MEDS: LEVOFLOXACIN 750 MG/D5W RTU 750 MG/150 ML RTUPB IV SCH (07:45)
[2018-11-08] MEDS: ACETAMINOPHEN 325 MG TABLET PO PRN ×2 (08:02→13:23)
[2018-11-08] MEDS: THIAMINE HCL 100 MG TABLET PO SCH (10:02)
[2018-11-08] MEDS: FOLIC ACID 1 MG TABLET PO SCH (10:02)
[2018-11-08] MEDS: FLUTICASONE NASAL SPRAY 50 MCG/SPRY 120 SPRAY/16 GM NASL SCH ×2 (10:03→22:34)
[2018-11-08] MEDS: CEFEPIME HCL 2 GM in DEXTROSE 5%-WATER 50 ML IV SCH (10:03)
[2018-11-08] MEDS ORDERED: LORAZEPAM INJ 2 MG/1 ML VIAL IV PRN (12:28)
[2018-11-08] MEDS: DILTIAZEM HCL 60 MG TABLET PO SCH ×2 (13:23→22:34)
[2018-11-08] MEDS: NICOTINE 14 MG/24 HR PATCH.TD24 TD SCH (13:23)
--- NOTE | 2018-11-08 14:01 | PDOC PROGRESS REPORT ---
Subjective Progress Note for:: 11/08/18 Subjective:: This is 63 years old to male patient with past medical history of COPD, everyday smoker, alcohol abuse and hypertension,, chronic pain syndrome presented with chief complaint of worsening shortness of breath. The last 2 days he has had cough and congestion. Patient is being managed accordingly for COPD exacerbation. This morning I seen patient sitting by bedside. He is awake alert oriented. He reports this is shortness of breath and cough are improving. Patient reports he smokes a pack a day and his pain is about 150-11 months for smoking. I encouraged and counseled him to quit smoking and he voices agreement. I started him on nicotine patch. Reason For Visit: COPD EXACERBATION TACHYCARDIA PNEUMONIA Physical Exam Vital Signs: Temp Pulse Resp BP Pulse Ox 97.5 F 86 20 114/74 97 11/08/18 11:21 11/08/18 11:21 11/08/18 11:21 11/08/18 11:21 11/08/18 11:21 Intake & Output 11/07/18 11/08/18 11/09/18 06:59 06:59 06:59 Intake Total 200 3030 200 Output Total 2 Balance 200 3028 200 Weight 88.904 kg 90.5 kg Results Laboratory Results: 11/08/18 04:24 11/08/18 04:24 11/08/18 11/08/18 04:24 04:24 WBC 7.8 RBC 4.54 Hgb 13.7 Hct 40.4 MCV 89 MCH 30.2 MCHC 33.9 RDW 12.7 Plt Count 182 Seg Neutrophils % 87.5 H Lymphocytes % 10.1 L Monocytes % 2.3 L Eosinophils % 0.0 Basophils % 0.1 Absolute Neutrophils 6.8 Absolute Lymphocytes 0.8 Absolute Monocytes 0.2 Absolute Eosinophils 0.0 Absolute Basophils 0.0 Sodium 134.4 L Potassium 4.9 Chloride 98 Carbon Dioxide 23 Anion Gap 13 BUN 20 Creatinine 0.74 Est GFR ( Amer) > 60 Est GFR (Non-Af Amer) > 60 Glucose 136 H Calcium 9.5 11/07/18 11/07/18 00:10 00:10 Troponin I < 0.012 NT-Pro-B Natriuret Pep 153 Impressions: Chest X-Ray 11/06/18 23:53 IMPRESSION: No evidence of acute cardiopulmonary disease. Assessment & Plan - Diagnosis (1) Pneumonia Is this a current diagnosis for this admission?: Yes Plan: Continue Levaquin (2) COPD exacerbation Is this a current diagnosis for this admission?: Yes Plan: Continue with supplemental oxygen, bronchodilators, antibiotics and Solu-Medrol. (3) Tachycardia Is this a current diagnosis for this admission?: Yes Plan: Resolved (4) Tobacco dependence Is this a current diagnosis for this admission?: Yes Plan: Patient counseled and encouraged to quit smoking. (5) Alcohol dependence Is this a current diagnosis for this admission?: Yes Plan: Patient is put on alcohol withdrawal protocol. (6) Hypertension Qualifiers: Hypertension type: essential hypertension Qualified Code(s): I10 - Essential (primary) hypertension Is this a current diagnosis for this admission?: Yes Plan: Continue home medications.
[2018-11-08] MEDS: PANTOPRAZOLE SODIUM 40 MG TABLET.DR PO SCH (18:11)
[2018-11-08] MEDS: CYCLOBENZAPRINE HCL 10 MG TABLET PO PRN (22:34)
[2018-11-09] MEDS: IPRATROPIUM/ALBUTEROL 0.5-2.5 MG/3 ML AMPUL NEB SCH ×2 (02:35→08:42)
[2018-11-09] MEDS: HEPARIN SOD (PORCINE) 5,000 UNIT/ML 1 ML SYRINGE SUBCUT SCH (05:27)
[2018-11-09] MEDS: PANTOPRAZOLE SODIUM 40 MG TABLET.DR PO SCH (05:31)
[2018-11-09] MEDS: DILTIAZEM HCL 60 MG TABLET PO SCH (05:31)
[2018-11-09] MEDS: METHYLPREDNISOLONE INJ 40 MG/1 ML SDV IV SCH (05:31)
[2018-11-09] MEDS: LEVOFLOXACIN 750 MG/D5W RTU 750 MG/150 ML RTUPB IV SCH (08:56)
[2018-11-09] MEDS: FOLIC ACID 1 MG TABLET PO SCH (09:02)
[2018-11-09] MEDS: THIAMINE HCL 100 MG TABLET PO SCH (09:02)
[2018-11-09] MEDS: FLUTICASONE NASAL SPRAY 50 MCG/SPRY 120 SPRAY/16 GM NASL SCH (09:02)
[2018-11-09] MEDS: NICOTINE 14 MG/24 HR PATCH.TD24 TD SCH (09:04)
--- NOTE | 2018-11-09 10:14 | PDOC DISCHARGE SUMMARY ---
General - Admit/Disc Date/PCP Admission Date/Primary Care Provider: 11/07/18 04:27 HOSEA MCCORD MD Discharge Date: 11/09/18 - Discharge Diagnosis (1) Pneumonia Is this a current diagnosis for this admission?: Yes (2) COPD exacerbation Is this a current diagnosis for this admission?: Yes (3) Tachycardia Is this a current diagnosis for this admission?: Yes (4) Tobacco dependence Is this a current diagnosis for this admission?: Yes (5) Alcohol dependence Is this a current diagnosis for this admission?: Yes (6) Hypertension Is this a current diagnosis for this admission?: Yes - Additional Information Resuscitation Status: Full Code Home Medications: No Home Medications 11/07/18 History of Present Illness History of Present Illness: HOSEA MONTANEZ II is a 63 year old male Hospital Course Hospital Course: This is 63 years old to male patient with past medical history of COPD, everyday smoker, alcohol abuse and hypertension,, chronic pain syndrome presented with chief complaint of worsening shortness of breath. The last 2 d ays he has had cough and congestion. Patient is being managed accordingly for COPD exacerbation. This morning I seen patient sitting by bedside. He is awake alert oriented. He reports this is shortness of breath and cough are improving. Patient reports he smokes a pack a day. I encouraged and counseled him to quit smoking and he voices agreement. This morning I seen patient resting in bed c omfortably. He is not in pain or any form of cardiorespiratory distress. He is awake alert and oriented. His vital signs and blood works are within normal limits. Patient is stable enough to be discharged today. Physical Exam Vital Signs: Temp Pulse Resp BP Pulse Ox 97.7 F 87 16 121/72 94 11/09/18 07:31 11/09/18 08:42 11/09/18 08:42 11/09/18 07:31 11/09/18 08:42 Intake & Output 11/08/18 11/09/18 11/10/18 06:59 06:59 06:59 Intake Total 3030 1870 Output Total 2 Balance 3028 1870 Weight 90.5 kg 90.5 kg General appearance: PRESENT: no acute distress Eye exam: PRESENT: conjunctiva pink Mouth exam: PRESENT: moist Neck exam: ABSENT: carotid bruit, JVD, lymphadenopathy, thyromegaly Respiratory exam: PRESENT: clear to auscultation kelvin. ABSENT: rales, rhonchi, wheezes Cardiovascular exam: PRESENT: RRR. ABSENT: diastolic murmur, rubs, systolic murmur GI/Abdominal exam: PRESENT: normal bowel sounds, soft. ABSENT: distended, guarding, mass, organolmegaly, rebound, tenderness Neurological exam: PRESENT: alert, awake, oriented to person, oriented to place, oriented to time, oriented to situation, CN II-XII grossly intact. ABSENT: motor sensory deficit Results Laboratory Results: 11/08/18 04:24 11/08/18 04:24 11/07/18 11/07/18 00:10 00:10 Troponin I < 0.012 NT-Pro-B Natriuret Pep 153 Impressions: Chest X-Ray 11/06/18 23:53 IMPRESSION: No evidence of acute cardiopulmonary disease. Qualifiers - * PATIENT BEING DISCHARGED WITH ANY OF THE FOLLOWING DIAGNOSIS: No VTE patient discharged on overlapping Therapy?: Yes
[2018-11-09 10:59] VITALS: BP 119/81
== END 2018-11-09 12:37 | disposition home or self-care (01) | DRG 190 ==
LOC: ER 23:47 → EH 11-07 04:27 → 4W 11-07 08:31
PROVIDERS: ADMIT Internal Medicine; ATTEND Internal Medicine
PROC: 3E0F3GC Introduction of Other Therapeutic Substance into Respiratory Tract, Percutaneous Approach (ICD-10-PCS; principal; 2018-11-07)
DX: J44.0 Chronic obstructive pulmonary disease with (acute) lower respiratory infection (principal); J18.9 Pneumonia, unspecified organism; J44.1 Chronic obstructive pulmonary disease with (acute) exacerbation; F10.20 Alcohol dependence, uncomplicated; R00.0 Tachycardia, unspecified; R09.02 Hypoxemia; I10 Essential (primary) hypertension; F90.9 Attention-deficit hyperactivity disorder, unspecified type; F32.9 Major depressive disorder, single episode, unspecified; F41.1 Generalized anxiety disorder; R06.82 Tachypnea, not elsewhere classified; G89.4 Chronic pain syndrome; F17.210 Nicotine dependence, cigarettes, uncomplicated; Z79.52 Long term (current) use of systemic steroids; Z88.2 Allergy status to sulfonamides; Z71.6 Tobacco abuse counseling; Z83.6 Family history of other diseases of the respiratory system; Z82.49 Family history of ischemic heart disease and other diseases of the circulatory system
CPT/HCPCS: 36415; 71045; 80048; 80053; 81001; 82803; 83880; 84484; 85025; 85379; 87040; 87804; 90471; 90686; 93005; 93010; 94640; 94667; 94668; 94799; 96365; 99285; G0008; J0692; J1644; J1956; J2920; J3475; J3490; J7030; J7512; J7620

== ENCOUNTER 2019-11-27 09:33 | Emergency (ER) | payer MEDICARE, MEDICAID ==
[2019-11-27] MEDS ORDERED: NORMAL SALINE 1000 ML 1,000 ML IV ONE (10:22)
[2019-11-27] MEDS ORDERED: ONDANSETRON HCL INJ/PF 4 MG/2 ML SDV IV ONE (10:22)
--- NOTE | 2019-11-27 10:46 | ER Document Report ---
ED GI/ - General Chief Complaint: Vomiting/Diarrhea Stated Complaint: VOMITING,DIARRHEA Time Seen by Provider: 11/27/19 10:03 Notes: CHIEF COMPLAINT: Abdominal pain, vomiting, diarrhea HPI: 64-year-old male presenting for generalized abdominal pain over the last 2 to 3 days. Had 2 episodes of vomiting today. Has had diarrhea 2-3 episodes daily over the last 2 to 3 days. States that his normal COPD cough is worse today. Patient does relate that he had been traveling to the [place] in the last week. Did not social distance or isolate. Patient states he has had chills and not feeling well for approximately 1 week ROS: See HPI - all other systems were reviewed and are otherwise negative Constitutional: no fever Eyes: no drainage, no blurred vision ENT: no runny nose, no sore throat Cardiovascular: no chest pain Resp: no SOB, positive cough GI: Positive vomiting, positive diarrhea, positive abdominal pain : no dysuria Integumentary: no rash Allergy: no hives Musculoskeletal: no extremity pain or swelling Neurological: no numbness/tingling, no weakness MEDICATIONS: I agree with the patient medications as charted by the RN. ALLERGIES: I agree with the allergies as charted by the RN. PAST MEDICAL HISTORY/PAST SURGICAL HISTORY: Reviewed and agree as charted by RN. SOCIAL HISTORY: Reviewed and agree as charted by RN. FAMILY HISTORY: No significant familial comorbid conditions directly related to patient complaint EXAM: Reviewed vital signs as charted by RN. CONSTITUTIONAL: Alert and oriented and responds appropriately to questions. Well-appearing; well-nourished HEAD: Normocephalic; atraumatic EYES: PERRL; Conjunctivae clear, sclerae non-icteric ENT: normal nose; no rhinorrhea; moist mucous membranes; pharynx without lesions noted, no uvula edema or deviation, no tonsillar hypertrophy, phonation normal NECK: Supple without meningismus; non-tender; no cervical lymphadenopathy, no masses CARD: RRR; no murmurs, no clicks, no rubs, no gallops; symmetric distal pulses RESP: Normal chest excursion without splinting or tachypnea; breath sounds clear and equal bilaterally; no wheezes, no rhonchi, no rales, pulse oximetry 97% on room air not hypoxic ABD/GI: Normal bowel sounds; non-distended; soft, mild generalized tenderness on palpation, no rebound, no guarding; no palpable organomegaly or masses. BACK: The back appears normal and is non-tender to palpation, there is no CVA tenderness EXT: Normal ROM in all joints; non-tender to palpation; no cyanosis, no effusions, no edema SKIN: Normal color for age and race; warm; dry; good turgor; no acute lesions noted NEURO: Moves all extremities equally; Motor and sensory function intact PSYCH: The patient's mood and manner are appropriate. Grooming and personal hygiene are appropriate. MDM: 64-year-old male with generalized abdominal pain nausea vomiting diarrhea over the last 3 days. Patient states that he has had chills and has not felt well for a week. Patient did not social distance or isolate and did travel to [place] areas over the last week, will obtain coronavirus testing, will obtain screening labs and CT imaging of the abdomen given his generalized abdominal pain to evaluate for diverticulitis or colitis TRAVEL OUTSIDE OF THE [place] IN LAST 30 DAYS: No - Related Data Allergies/Adverse Reactions: Sulfa (Sulfonamide Antibiotics) Allergy (Intermediate, Verified 07/25/17 17:20) [place] Past Medical History - Social History Smoking Status: Current Every Day Smoker Family History: Reviewed & Not Pertinent - Past Medical History Cardiac Medical History: Reports: Hx Hypertension Pulmonary Medical History: Reports: Hx COPD Renal/ Medical History: Reports: Hx Kidney Stones. Denies: Hx Peritoneal Dialysis Psychiatric Medical History: Reports: Hx Anxiety, Hx Attention Deficit Hyperactivity Disorder Denies: Hx Depression Past Surgical History: Reports: Hx Nose Surgery - rhinoplasty - Immunizations Immunizations up to date: Yes Hx Diphtheria, Pertussis, Tetanus Vaccination: No - unsure Physical Exam - Vital signs Vitals: Temp Pulse Resp BP Pulse Ox 98.1 F 113 H 24 H 134/93 H 97 11/27/19 09:37 11/27/19 09:37 11/27/19 09:37 11/27/19 09:37 11/27/19 09:37 Course - Re-evaluation Re-evalutation: 11/27/19 13:16 Patient's lab work and imaging studies do not show acute abnormalities likely a viral etiology, given his lack of isolation and social distancing recently will obtain coronavirus testing on the patient he is to self isolate at home he is aware of this until his results are obtained - Vital Signs Vital signs: Temp Pulse Resp BP Pulse Ox 98.1 F 113 H 24 H 134/93 H 97 11/27/19 09:37 11/27/19 09:37 11/27/19 09:37 11/27/19 09:37 11/27/19 09:37 - Laboratory Result Diagrams: 11/27/19 10:50 11/27/19 10:50 Laboratory results interpreted by me: 11/27/19 11/27/19 10:50 11:00 BUN 33 H Creatinine 1.26 H Est GFR (MDRD) Non-Af 58 L AST 66 H ALT 66 H Urine Protein 30 H Ur Leukocyte Esterase TRACE H Discharge - Discharge Clinical Impression: Abdominal pain, generalized, Nausea vomiting and diarrhea Condition: Stable Disposition: HOME, SELF-CARE Instructions: Abdominal Pain ([facility]) Additional Instructions: Your lab work and CT imaging results today did not show acute emergent abnormalities. Given your recent travel a coronavirus test was obtained today, self isolate at home until your results have been obtained. Take the Zofran for any recurrent nausea or vomiting. Make sure you are hydrating well at home. Follow-up with your primary care provider for reevaluation of symptoms call for appointment Prescriptions: Ondansetron [Zofran Odt 4 mg Tablet] 1 - 2 tab PO Q4H PRN #15 tab.rapdis PRN Reason: For Nausea/Vomiting Referrals: GEE MORROW MD [ACTIVE STAFF] - Follow up as needed
[2019-11-27 11:16] LABS: ABSOLUTE BASOPHILS # (AUTO) 0.1 10^3/uL (0.0-0.2); ABSOLUTE EOSINOPHILS # (AUTO) 0.2 10^3/uL (0.0-0.6); ABSOLUTE LYMPHOCYTES (AUTO) 2.2 10^3/uL (0.5-4.7); ABSOLUTE MONOCYTES (AUTO) 0.8 10^3/uL (0.1-1.4); ABSOLUTE NEUT (AUTO) 4.3 10^3/uL (1.7-8.2); BASOPHILS % (AUTO) 0.8 % (0-2); EOSINOPHILS % (AUTO) 2.9 % (0-6); HEMATOCRIT 46.4 % (37.9-51.0); HEMOGLOBIN 15.7 g/dL (13.5-17.0); LYMPHOCYTES % (AUTO) 28.8 % (13-45); MEAN CORPUSCULAR HEMOGLOBIN 30.4 pg (27.0-33.4); MEAN CORPUSCULAR HGB CONC 33.8 g/dL (32.0-36.0); MEAN CORPUSCULAR VOLUME 90 fl (80-97); MONOCYTES % (AUTO) 10.7 % (3-13); PLATELET COUNT 208 10^3/uL (150-450); RED BLOOD COUNT 5.16 10^6/uL (4.35-5.55); RED CELL DISTRIBUTION WIDTH 13.7 % (11.5-14.0); SEGMENTED NEUTROPHILS % (AUTO) 56.8 % (42-78); TOTAL CELLS COUNTED % (AUTO) 100 %; WHITE BLOOD COUNT 7.6 10^3/uL (4.0-10.5)
[2019-11-27 11:21] LABS: APPEARANCE,URINE SLIGHTLY-CLOUDY; BILIRUBIN,URINE NEGATIVE (NEGATIVE); COLOR,URINE YELLOW; GLUCOSE, URINE NEGATIVE (NEGATIVE); KETONES,URINE NEGATIVE (NEGATIVE); LEUKOCYTE ESTERASE,URINE TRACE (NEGATIVE); NITRITE,URINE NEGATIVE (NEGATIVE); PROTEIN,URINE 30 mg/dL (NEGATIVE); URINE SPECIFIC GRAVITY 1.021; UROBILINOGEN,URINE NEGATIVE mg/dL (<2.0)
[2019-11-27 11:30] LABS: A TYPE INFLUENZA AG NEGATIVE (NEGATIVE); B INFLUENZA AG NEGATIVE (NEGATIVE)
[2019-11-27 11:32] LABS: ALBUMIN 4.2 g/dL (3.5-5.0); ALKALINE PHOSPHATASE 76 U/L (38-126); ANION GAP 8 (5-19); ASPARTATE AMINO TRANSFERASE 66 U/L (17-59); BILIRUBIN,DIRECT 0.2 mg/dL (0.0-0.4); BILIRUBIN,TOTAL 0.6 mg/dL (0.2-1.3); BLOOD UREA NITROGEN 33 mg/dL (7-20); CALCIUM 9.7 mg/dL (8.4-10.2); CARBON DIOXIDE 27 mmol/L (22-30); CHLORIDE 104 mmol/L (98-107); GLUCOSE 105 mg/dL (75-110); POTASSIUM 4.6 mmol/L (3.6-5.0); TOTAL PROTEIN 7.4 g/dL (6.3-8.2)
--- NOTE | 2019-11-27 12:22 | RADIOLOGY REPORT (SQ) ---
EXAM DESCRIPTION: CT ABD/PELVIS WITH IV ONLY IMAGES COMPLETED DATE/TIME: 11/27/2019 12:09 pm REASON FOR STUDY: colitis COMPARISON: 07/25/2017 TECHNIQUE: CT scan of the abdomen and pelvis performed using helical scanning technique with dynamic intravenous contrast injection. No oral contrast. Images reviewed with lung, soft tissue, and bone windows. Reconstructed coronal and sagittal MPR images reviewed. Delayed images for evaluation of the urinary system also acquired. All images stored on PACS. All CT scanners at this facility use dose modulation, iterative reconstruction, and/or weight based d osing when appropriate to reduce radiation dose to as low as reasonably achievable (ALARA). [facility]: Dose Right [facility]: CareDose [facility]: Dose Right [facility]: Teradose 4D [facility]: Visualnet CONTRAST TYPE AND DOSE: contrast/concentration: Isovue 350.00 mg/ml; Total Contrast Delivered: 99.0 ml; Total Saline Delivered: 57.0 ml RENAL FUNCTION: BUN 33, creatinine 1.2 RADIATION DOSE: CT Rad equipment meets quality standard of care and radiation dose reduction techniq ues were employed. CTDIvol: 9.6 - 13.3 mGy. DLP: 1301 mGy-cm.. LIMITATIONS: None. FINDINGS: LOWER CHEST: No significant findings. No nodules or infiltrates. LIVER: There is hepatomegaly. The liver measures just under 20 cm in cranial caudal dimensions. The re is decreased attenuation throughout consistent with fatty infiltration pre SPLEEN: Normal size. No focal lesions. PANCREAS: No masses. No significant calcifications. No adjacent inflammation or peripancreatic fluid collections. Pancreatic duct not dilated. GALLBLADDER: The gallbladder is contracted. ADRENAL GLANDS: No significant masses or asymmetry. RIGHT KIDNEY AND URETER: No solid masses. No significant calcifications. No hydronephrosis or hyd roureter. LEFT KIDNEY AND URETER: No solid masses. No significant calcifications. No hydronephrosis or hydr oureter. AORTA AND VESSELS: Atherosclerotic change. No aneurysmal dilatation. Celiac axis, and SMA are paten t. Both renal arteries are patent. RETROPERITONEUM: No retroperitoneal adenopathy, hemorrhage or masses. BOWEL AND PERITONEAL CAVITY: No masses or inflammatory changes. No free fluid or peritoneal masses. APPENDIX: Normal. PELVIS: No mass. No free fluid. Normal bladder. ABDOMINAL WALL: No masses. No hernias. BONES: No significant or acute findings. OTHER: No other significant finding. IMPRESSION: Hepatomegaly and fatty infiltration of the liver. No other significant findings. No CT evidence of acute colitis. TECHNICAL DOCUMENTATION: JOB ID: [id number] Quality ID # [id number]: Final reports with documentation of one or more dose reduction techniques (e.g., Au tomated exposure control, adjustment of the mA and/or kV according to patient size, use of iterative reconstruction technique) 2010 [employer]- All Rights Reserved Reading location - IP/workstation name: [email or web address]
[2019-11-27 13:37] VITALS: BP 133/88
== END 2019-11-27 13:35 | disposition home or self-care (01) ==
LOC: ER 09:33
DX: R10.84 Generalized abdominal pain (principal); R11.2 Nausea with vomiting, unspecified; R19.7 Diarrhea, unspecified; J44.9 Chronic obstructive pulmonary disease, unspecified; R05 Cough; R68.83 Chills (without fever); F17.200 Nicotine dependence, unspecified, uncomplicated; I10 Essential (primary) hypertension; F41.9 Anxiety disorder, unspecified; Z79.899 Other long term (current) drug therapy; Z79.51 Long term (current) use of inhaled steroids; Z88.2 Allergy status to sulfonamides
CPT/HCPCS: 99284; 96361; 96374; 36415; 83690; 85025; 87635; 80053; 81001; 87804; 74177; J2405; J7030

== ENCOUNTER 2020-09-11 09:17 | Emergency (ER) | payer MEDICARE, MEDICAID ==
[2020-09-11] MEDS ORDERED: TETRACAINE HCL 0.5% OPH SOLN 4 ML OS ONE (10:04)
[2020-09-11] MEDS ORDERED: DIPHENHYDRAMINE HCL 50 MG/ML VIAL IV ONE (10:05)
[2020-09-11] MEDS ORDERED: METOCLOPRAMIDE HCL INJ/PF 10 MG/2 ML SDV IV ONE (10:05)
--- NOTE | 2020-09-11 10:22 | ER Document Report ---
ED Headache - General Chief Complaint: Headache >24 hrs old Stated Complaint: HEADACHE Time Seen by Provider: 09/11/20 09:46 Primary Care Provider: MARK,NO [Primary Care Provider] - Follow up as needed Notes: CHIEF COMPLAINT: Left-sided headache for 1 week HPI: 65-year-old male with no history of migraine headaches presenting with a left-sided headache focused behind the left eye and uatsdin region. Progressive onset not thunderclap onset. No slurred speech. No facial droop. Patient denies weakness numbness or tingling in the extremities. Denies chest pain shortness of breath. Patient states that he is on Plavix secondary to a cardiac stent that he received at [facility] in April 2020. Patient reports no tearing from the left eye. Does report some photophobia in the left eye. No history of glaucoma ROS: See HPI - all other systems were reviewed and are otherwise negative Constitutional: no fever Eyes: no drainage, + blurred vision ENT: no runny nose, no sore throat Cardiovascular: no chest pain Resp: no SOB, no cough GI: no vomiting, no diarrhea, no abdominal pain : no dysuria Integumentary: no rash Allergy: no hives Musculoskeletal: no extremity pain or swelling Neurological: no numbness/tingling, no weakness, + headache MEDICATIONS: I agree with the patient medications as charted by the RN. ALLERGIES: I agree with the allergies as charted by the RN. PAST MEDICAL HISTORY/PAST SURGICAL HISTORY: Reviewed and agree as charted by RN. SOCIAL HISTORY: Reviewed and agree as charted by RN. FAMILY HISTORY: No significant familial comorbid conditions directly related to patient complaint EXAM: Reviewed vital signs as charted by RN. CONSTITUTIONAL: Alert and oriented and responds appropriately to questions. Well-appearing; well-nourished HEAD: Normocephalic; atraumatic EYES: PERRL; Conjunctivae clear, sclerae non-icteric. Mild photophobia is noted ENT: normal nose; no rhinorrhea; moist mucous membranes; pharynx without lesions noted, no uvula edema or deviation, no tonsillar hypertrophy, phonation normal NECK: Supple without meningismus; non-tender; no cervical lymphadenopathy, no masses CARD: RRR; no murmurs, no clicks, no rubs, no gallops; symmetric distal pulses RESP: Normal chest excursion without splinting or tachypnea; breath sounds clear and equal bilaterally; no wheezes, no rhonchi, no rales, pulse oximetry ABD/GI: Normal bowel sounds; non-distended; soft, non-tender, no rebound, no guarding; no palpable organomegaly or masses. BACK: The back appears normal and is non-tender to palpation, there is no CVA tenderness EXT: Normal ROM in all joints; non-tender to palpation; no cyanosis, no effusions, no edema SKIN: Normal color for age and race; warm; dry; good turgor; no acute lesions noted NEURO: Moves all extremities equally; Motor and sensory function intact. Face symmetric. Tongue protrudes midline. Extraocular motions intact. Pupils are 2 mm and equally reactive. Normal speech, normal gait. 5 out of 5 strength in both the distal and proximal upper and lower extremities bilaterally. Sensation is grossly intact throughout. Finger to nose testing normal. Pronator drift normal. PSYCH: The patient's mood and manner are appropriate. Grooming and personal hygiene are appropriate. MDM: 65-year-old male with 1 week of a left frontal, ocular and temporal type headache. No other neurologic changes. Will obtain CT and screening labs. He is on Plavix. Intraocular pressure in the left eye is 17 on repeat examination with Berto-Pen. TRAVEL OUTSIDE OF THE [place] IN LAST 30 DAYS: No - Related Data Allergies/Adverse Reactions: Sulfa (Sulfonamide Antibiotics) Allergy (Intermediate, Verified 09/11/20 16:31) [place] Home Medications: Duloxetine, Nitroglycerin PRN, Pravastatin, Metoprolol, Oxycodone Past Medical History - Social History Smoking Status: Current Every Day Smoker Frequency of alcohol use: Heavy Drug Abuse: None Family History: Reviewed & Not Pertinent - Past Medical History Cardiac Medical History: Reports: Hx Hypercholesterolemia, Hx Hypertension Pulmonary Medical History: Reports: Hx COPD Renal/ Medical History: Reports: Hx Kidney Stones. Denies: Hx Peritoneal Dialysis Psychiatric Medical History: Reports: Hx Anxiety, Hx Attention Deficit Hy peractivity Disorder Denies: Hx Depression Past Surgical History: Reports: Hx Nose Surgery - rhinoplasty, Hx Orthopedic Surgery - Immunizations Immunizations up to date: Yes Hx Diphtheria, Pertussis, Tetanus Vaccination: No - unsure Physical Exam - Vital signs Vitals: Temp Pulse Resp BP Pulse Ox 98.3 F 96 16 151/96 H 98 09/11/20 09:21 09/11/20 09:21 09/11/20 09:21 09/11/20 09:21 09/11/20 09:21 Course - Re-evaluation Re-evalutation: 09/11/20 10:48 I received a call from the reading radiologist the patient has a 6 mm subdural hematoma. No reported shift. Discussed with attending Dr. Diaz. I have spoken with the transfer center at [facility] to speak with our on-call neurosurgeon. 09/11/20 11:02 I spoke with BRANDON Griggs for Neurosurgery at [facility]. States patient not need emergent transfer to them at this point in time to the ICU as they have no ICU beds. He does need to be observed and started on Keppra 500 mg twice daily. Plavix needs to be held. He does indicate patient likely needs a repeat CT jesus orrow to evaluate the bleed. Discussed with the transfer center. They indicate we should call her hospitalist here first to see if they would be willing to take him. I did indicate to them that as we do not have neurosurgery coverage here it is unlikely that they will take him and I will likely be calling back to discuss whether patient can be held in a medical bed there or transfer to their ER to be held for the day for neurosurgery in case patient has any decline in status 09/11/20 11:07 spoke with Chandrika Forte, Hospitalist. Case was discussed. As we do not have neurosurgery coverage they declined to admit the patient at this time in case patient decompensates. 09/11/20 11:14 I spoke with [facility] transfer line. They indicate that they have no medical beds to take the patient to observe him. She is aware that her hospitalist has declined to admit the patient here as we have no neurosurgical coverage. I have requested that they find out if we could transfer the patient to their ER to be held as they do have neurosurgery there and the patient normally follows with cardiology there 09/11/20 11:43 spoke with Transfer center, [facility]. They will call me back. 09/11/20 12:[address] Tomas, Neurosurgery at [facility]. Case was discussed. She has had a chance to review the images. We discussed the patient's history. Patient is alert and oriented answering my questions appropriately with normal speech pattern. She feels that patient does likely need reimaging. She feels this can be done at [address] and if there is no change in the CT images or size of the subdural patient can likely be discharged and she will p kaylie to closely follow the patient as an outpatient. She will likely contact him by tomorrow. If there is any change she requests to be called again. She does believe that patient needs to hold his Plavix. Does not believe patient needs to be started on Keppra. She does not feel the patient needs emergent surgery at this time. It has been 7 days since onset of symptoms. Patient is hypertensive here is not taken his blood pressure medications nursing will input these and I will write the patient for his normal blood pressure medications. I spoke with him at length about his symptoms, results and the fact that he will have to hold his Plavix. Patient is aware that he may develop an occlusion of stent in his heart and that he should contact his facilities engineering manager sooner than later. Patient is willing to stay to have the CT scan done. We will plan to continue to observe and monitor 09/11/20 14:53 Patient remains neurologically intact still reporting significant left-sided headache. Awaiting CT imaging in 1 hour. Patient is on metoprolol ER 100 mg daily and amlodipine 5 mg daily I will give him his blood pressure medications. The is not yet been entered by the nurses. We will also continue to treat his headache. 09/11/20 17:49 I spoke with the transfer center with the patient CT. It is not changed from prior. I will still send a copy for them to review. She will have the neurosurgeon call me back or call me with a message from the neurosurgeon about whether they need to change any plan other than sending patient home to contact him tomorrow for follow-up. Patient is in agreement with this plan and does wish to go home 09/11/20 18:03 I spoke with Leonora from [facility] on recorded line. She has messaged the neurosurgeon. She states last notes from the neurosurgeon per the nurse sitting beside her who is with her at the time of the original call for that she would like the patient discharged home to hold the Plavix and she will have the office follow-up with him tomorrow. I will also provide the patient with a number for the neurosurgery office to call first thing in the morning. He is aware that should he have any worsening symptoms at all he is to return or go directly to [facility] or [facility] for further care and evaluation patient is alert and oriented answers all questions appropriately neurologically intact at the time of my evaluation currently and indicates acceptance of a discharge plan in agreement with this. He does wish to go home. He verbalizes understanding of all instructions - Vital Signs Vital signs: Temp Pulse Resp BP Pulse Ox 98.3 F 96 17 143/99 H 94 09/11/20 09:21 09/11/20 09:21 09/11/20 17:00 09/11/20 16:00 09/11/20 17:00 - Laboratory Results Result Diagrams: 09/11/20 10:07 09/11/20 10:07 Laboratory Results Interpreted: 09/11/20 10:07 AST 160 H ALT 92 H Critical Laboratory Results Reviewed: No Critical Results - Radiology Results Critical Radiology Results Reviewed: Yes Attending or Supervising Physician who Reviewed Radiology: LINDA DIAZ Discharge - Discharge Clinical Impression: Subdural hematoma Condition: Fair Disposition: HOME, SELF-CARE Additional Instructions: Follow up with [facility]surgery tomorrow ([phone]) morning to discuss further management of the bleeding inside the skull. Hold your Plavix which is the medication you take as a blood thinner for your stent. Discuss when you may restart this with the neurosurgeon. You should also call your facilities engineering manager tomorrow regarding your medication regimen. Make sure you take your blood pressure medications to keep your blood pressure under control. If you have any worsening symptoms at all please return for reevaluation as discussed or proceed for evaluation by the neurosurgery group
[2020-09-11 10:24] LABS: ABSOLUTE BASOPHILS # (AUTO) 0.1 10^3/uL (0.0-0.2); ABSOLUTE EOSINOPHILS # (AUTO) 0.1 10^3/uL (0.0-0.6); ABSOLUTE LYMPHOCYTES (AUTO) 1.3 10^3/uL (0.5-4.7); ABSOLUTE MONOCYTES (AUTO) 0.4 10^3/uL (0.1-1.4); BASOPHILS % (AUTO) 1.2 % (0-2); EOSINOPHILS % (AUTO) 2.7 % (0-6); HEMATOCRIT 40.9 % (37.9-51.0); HEMOGLOBIN 14.1 g/dL (13.5-17.0); LYMPHOCYTES % (AUTO) 26.8 % (13-45); MEAN CORPUSCULAR HGB CONC 34.3 g/dL (32.0-36.0); MEAN CORPUSCULAR VOLUME 90 fl (80-97); MONOCYTES % (AUTO) 8.5 % (3-13); PLATELET COUNT 230 10^3/uL (150-450); RED BLOOD COUNT 4.54 10^6/uL (4.35-5.55); RED CELL DISTRIBUTION WIDTH 12.9 % (11.5-14.0); SEGMENTED NEUTROPHILS % (AUTO) 60.8 % (42-78); TOTAL CELLS COUNTED % (AUTO) 100 %; WHITE BLOOD COUNT 4.9 10^3/uL (4.0-10.5)
[2020-09-11 10:32] LABS: INTERNATIONAL RATION (INR) 0.91; PROTHROMBIN TIME 12.5 SEC (11.4-15.4)
[2020-09-11 10:42] LABS: ALBUMIN 4.1 g/dL (3.5-5.0); ALKALINE PHOSPHATASE 74 U/L (38-126); ANION GAP 6 (5-19); ASPARTATE AMINO TRANSFERASE 160 U/L (17-59); BILIRUBIN,DIRECT 0.2 mg/dL (0.0-0.4); BILIRUBIN,TOTAL 0.5 mg/dL (0.2-1.3); BLOOD UREA NITROGEN 19 mg/dL (7-20); CALCIUM 9.5 mg/dL (8.4-10.2); CARBON DIOXIDE 29 mmol/L (22-30); CHLORIDE 102 mmol/L (98-107); GLUCOSE 91 mg/dL (75-110); POTASSIUM 4.8 mmol/L (3.6-5.0)
[2020-09-11] MEDS ORDERED: MORPHINE SULFATE 10 MG/ML INJ IV ONE ×2 (10:44→12:44)
[2020-09-11] MEDS ORDERED: ONDANSETRON HCL INJ/PF 4 MG/2 ML SDV IV ONE (10:44)
--- NOTE | 2020-09-11 10:51 | RADIOLOGY REPORT (SQ) ---
EXAM DESCRIPTION: CT HEAD WITHOUT IMAGES COMPLETED DATE/TIME: 09/11/2020 10:33 am REASON FOR STUDY: left headache COMPARISON: None. TECHNIQUE: Axial images acquired through the brain without intravenous contrast. Images reviewed wi th bone, brain and subdural windows. Additional sagittal and coronal reconstructions were generated. Images stored on PACS. All CT scanners at this facility use dose modulation, iterative reconstruction, and/or weight based d osing when appropriate to reduce radiation dose to as low as reasonably achievable (ALARA). [facility]: Dose Right [facility]: CareDose [facility]: Dose Right [facility]: Teradose 4D [facility]: Smart [employer] RADIATION DOSE: CT Rad equipment meets quality standard of care and radiation dose reduction techniq ues were employed. CTDIvol: 53.2 mGy. DLP: 1017 mGy-cm. mGy. LIMITATIONS: None. FINDINGS: VENTRICLES: Normal size and contour. CEREBRUM: No masses. No hemorrhage. No midline shift. No evidence for acute infarction. Normal gra y/white matter differentiation. No areas of low density in the white matter. CEREBELLUM: No masses. No hemorrhage. No alteration of density. No evidence for acute infarction. EXTRAAXIAL SPACES: Acute subdural hematoma over the left cerebral hemisphere measuring approximately 6 mm maximum transverse diameter. No significant mass effect. ORBITS AND GLOBE: No intra- or extraconal masses. Normal contour of globe without masses. CALVARIUM: No fracture. PARANASAL SINUSES: No fluid or mucosal thickening. SOFT TISSUES: No mass or hematoma. OTHER: No other significant finding. IMPRESSION: Acute left subdural hematoma. EVIDENCE OF ACUTE STROKE: NO. Findings were called to ordering provider 1043 hours. COMMENT: The findings were sent to the Radiology Results Communication Center at 10:41 on 09/11/2020 to be communicated to a licensed caregiver. Quality ID # 436: Final reports with documentation of one or more dose reduction techniques (e.g., Au tomated exposure control, adjustment of the mA and/or kV according to patient size, use of iterative reconstruction technique) TECHNICAL DOCUMENTATION: JOB ID: [id number] 2010 [employer]- All Rights Reserved Reading location - IP/workstation name: [email or web address]
[2020-09-11] MEDS ORDERED: LEVETIRACETAM 500 MG TABLET PO ONE (11:05)
[2020-09-11 11:10] LABS: ERYTHROCYTE SEDIMENTATION RATE 15 mm/hr (0-20)
[2020-09-11] MEDS ORDERED: METOPROLOL SUCCINATE 50 MG TAB.SR.24H PO ONE (14:52)
[2020-09-11] MEDS ORDERED: AMLODIPINE BESYLATE 5 MG TABLET PO ONE (14:52)
[2020-09-11] MEDS ORDERED: OXYCODONE-ACETAMINOPHEN 5-325 MG TABLET PO ONE (14:52)
--- NOTE | 2020-09-11 17:03 | RADIOLOGY REPORT (SQ) ---
EXAM DESCRIPTION: CT HEAD WITHOUT IMAGES COMPLETED DATE/TIME: 09/11/2020 4:37 pm REASON FOR STUDY: re-evaluate subdural at 6 hours COMPARISON: 09/11/2020 TECHNIQUE: Axial images acquired through the brain without intravenous contrast. Images reviewed wi th bone, brain and subdural windows. Additional sagittal and coronal reconstructions were generated. Images stored on PACS. All CT scanners at this facility use dose modulation, iterative reconstruction, and/or weight based d osing when appropriate to reduce radiation dose to as low as reasonably achievable (ALARA). [facility]: Dose Right [facility]: CareDose [facility]: Dose Right [facility]: Teradose 4D [facility]: Smart [employer] RADIATION DOSE: CT Rad equipment meets quality standard of care and radiation dose reduction techniq ues were employed. CTDIvol: 53.2 mGy. DLP: 1044 mGy-cm. mGy. LIMITATIONS: None. FINDINGS: VENTRICLES: Normal size and contour. CEREBRUM: No masses. No hemorrhage. No midline shift. No evidence for acute infarction. Normal gra y/white matter differentiation. No areas of low density in the white matter. CEREBELLUM: No masses. No hemorrhage. No alteration of density. No evidence for acute infarction. EXTRAAXIAL SPACES: Left subdural hematoma that appears stable. No significant increase. ORBITS AND GLOBE: No intra- or extraconal masses. Normal contour of globe without masses. CALVARIUM: No fracture. PARANASAL SINUSES: No fluid or mucosal thickening. SOFT TISSUES: No mass or hematoma. OTHER: No other significant finding. IMPRESSION: Stable left subdural hematoma. No significant mass effect. No interval change. EVIDENCE OF ACUTE STROKE: NO. COMMENT: Quality ID # [id number]: Final reports with documentation of one or more dose reduction techniques (e.g., Automated exposure control, adjustment of the mA and/or kV according to patient size, use of iterative reconstruction technique) TECHNICAL DOCUMENTATION: JOB ID: [id number] 2010 [employer]- All Rights Reserved Reading location - IP/workstation name: [email or web address]
[2020-09-11 18:56] VITALS: BP 143/103
== END 2020-09-11 19:00 | disposition home or self-care (01) ==
LOC: ER 09:17
DX: S06.5X9A Traumatic subdural hemorrhage with loss of consciousness of unspecified duration, initial encounter (principal); X58.XXXA Exposure to other specified factors, initial encounter; R51.9 Headache, unspecified; H53.142 Visual discomfort, left eye; H53.8 Other visual disturbances; E78.00 Pure hypercholesterolemia, unspecified; I10 Essential (primary) hypertension; J44.9 Chronic obstructive pulmonary disease, unspecified; F41.9 Anxiety disorder, unspecified; Z79.02 Long term (current) use of antithrombotics/antiplatelets; Z79.899 Other long term (current) drug therapy; Z79.891 Long term (current) use of opiate analgesic; Z95.5 Presence of coronary angioplasty implant and graft; Z88.2 Allergy status to sulfonamides
CPT/HCPCS: 96376; 99285; 96374; 96375; 36415; 85025; 85652; 85610; 80053; 70450; J2270; A9270 ×4; J2405; J3490